=== PATIENT | male | born 1980 | race Two or more races ===

== ENCOUNTER 2017-01-15 18:41 | Emergency (ER) | payer SELFPAY ==
[~2017-01-15] VITALS: Ht 160 cm; Wt 68.0 kg
[2017-01-15 19:15] VITALS: BP 151/81
[2017-01-15] MEDS ORDERED: TETANUS-DIPTH-ACEL PERTUSSIS 0.5ML SYRG IM ONE (21:15)
[2017-01-15] MEDS ORDERED: ACETAMINOPHEN/CODEINE#3 (300/30mg) TAB PO ONE (22:15)
== END 2017-01-15 22:15 | disposition home or self-care (01) ==
LOC: ER 18:44 → EDSEX 18:44 → ER 22:15
DX: S01.01XA Laceration without foreign body of scalp, initial encounter (principal); S00.93XA Contusion of unspecified part of head, initial encounter; W22.8XXA Striking against or struck by other objects, initial encounter; Y93.89 Activity, other specified; Y92.89 Other specified places as the place of occurrence of the external cause; Y99.8 Other external cause status
CPT/HCPCS: 12002; 70450; 90471; 90715